=== PATIENT | female | born 1985 | race Two or more races ===

== ENCOUNTER 2017-09-16 11:28 | Emergency (ER) | payer SELFPAY ==
[~2017-09-16] VITALS: Ht 152.4 cm; Wt 49.0 kg
[2017-09-16 11:34] VITALS: BP 100/56
[2017-09-16] MEDS ORDERED: Methocarbamol 750mg tab ORAL ONE (11:45)
[2017-09-16] MEDS ORDERED: IBUPROFEN600 MG ORAL (12:06)
[2017-09-16] MEDS ORDERED: ROBAXIN-750750 MG PO (12:06)
[2017-09-16 12:25] VITALS: BP 109/89
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
== END 2017-09-16 12:40 | disposition home or self-care (01) ==
LOC: EDBD 11:28 → EMR 12:29
DX: M54.2 Cervicalgia (principal); V43.52XA Car driver injured in collision with other type car in traffic accident, initial encounter; Y92.410 Unspecified street and highway as the place of occurrence of the external cause
CPT/HCPCS: 99283